=== PATIENT | female | born 1950 | race Hispanic/Latino ===

== ENCOUNTER → 2017-08-05 | Day surgery (SDC) | payer OTHER ==
--- NOTE | 2017-08-05 11:36 | RAD REPORT ---
EXAM DESCRIPTION: Ultrasound-guided vacuum assisted right breast core biopsy CLINICAL HISTORY: N63.10 COMPARISON: Recent breast imaging studies. FINDINGS: Informed consent was obtained and time-out was performed. The patient's right breast was prepped and draped in the usual sterile fashion. 1% lidocaine was used for local anesthetic purposes. Small hypoechoic lesion was localized upper inner quadrant 3 cm from the nipple. Utilizing aseptic technique and ultrasound guidance, vacuum assisted core biopsy device was used to o btain 2 core specimens through the mass of interest. A post biopsy clip was then placed. All collected material was sent for cytology. Patient tolerated procedure well. IMPRESSION: Successful ultrasound guided vacuum assisted right breast mass biopsy.
== END ==
LOC: RAD 09:40
PROVIDERS: ATTEND Internal Medicine
DX: C50.911 Malignant neoplasm of unspecified site of right female breast (principal); Z17.0 Estrogen receptor positive status [ER+]
CPT/HCPCS: 19083; 88305

== ENCOUNTER 2017-09-02 06:07 | Observation (INO) | payer OTHER ==
--- NOTE | 2017-08-28 15:14 | RAD REPORT ---
EXAM DESCRIPTION: RAD - Chest Pa And Lat (2 Views) - 08/28/2017 3:07 pm CLINICAL HISTORY: Preop chest, pending lumpectomy COMPARISON: April 29 TECHNIQUE: PA and lateral views of the chest were obtained. FINDINGS: The lungs are clear of an acute infiltrate, failure or mass. Numerous benign calcification s are present overlying both lung lopez. Pattern is similar to the comparison. Trachea is midline. Heart size is normal and central vasculature is within normal limits. No pleural effusion or pneumot horax seen. No acute bony finding noted. No aortic abnormality. IMPRESSION: No acute cardiopulmonary process. Above detailed findings are stable from April 2017 .
[2017-08-28 16:51] LABS: Absolute Monocytes 0.6 K/uL (0.1-1.3); Absolute Neutrophil 7.5 K/uL (1.8-8.0); Basophils % 0.5 % (0-1.3); Eosinophils % 2.5 % (0-4.4); Hematocrit 40.8 % (36.0-45.0); Lymphocytes % 31.8 % (15.3-44.8); MCV 84.1 fL (80-100); MPV 9.8 fL (7.6-11.3); Monocytes % 5.2 % (3.3-12.3); RBC Red Blood Cell Count 4.85 M/uL (3.86-4.86)
[2017-08-28 17:05] LABS: Potassium 4.2 mEq/L (3.6-5.0)
--- NOTE | 2017-08-28 22:40 | EKG ---
Test Date: 2017-08-28 Test Time: 14:56:56 Workers Compensation Consultant: BITA MEASUREMENT RESULTS: Intervals: Rate: 84 NM: 152 QRSD: 72 QT: 390 QTc: 460 [place]: P: 49 NM: 152 QRS: -52 T: 51 INTERPRETIVE STATEMENTS: Normal sinus rhythm Left axis deviation Abnormal ECG No previous ECG available for comparison Electronically Signed On 08-28-17 22:39:38 CDT by Silvino Love
[2017-09-02] MEDS ORDERED: NA CHLORIDE 0.9% 1,000 ML ONE (06:16)
[2017-09-02] MEDS ORDERED: CIPROFLOXACIN 400mg IV 400 MG/200 ML BAG IV ONE (08:56)
[2017-09-02] MEDS ORDERED: PROPOFOL 200 MG/20 ML VIAL IV ONE (08:57)
[2017-09-02] MEDS ORDERED: LIDOCAINE 2% MPF 5 ML VIAL ONE (08:58)
[2017-09-02] MEDS ORDERED: FENTANYL CITR 250 MCG/5 ML ONE (08:59)
[2017-09-02] MEDS ORDERED: ONDANSETRON HCL 40 MG/20 ML VIAL ONE (09:00)
[2017-09-02] MEDS ORDERED: MIDAZOLAM HCL 2 MG/2 ML INJ ONE (09:40)
[2017-09-02] MEDS ORDERED: METHYLENE BLUE 0.5% 10 ML AMP ONE (10:38)
[2017-09-02] MEDS ORDERED: MORPHINE 10 MG/ML VIAL ONE (12:16)
[2017-09-02] MEDS: NA CHLORIDE 0.9% 1,000 ML ONE ×2 (12:39→12:44)
--- NOTE | 2017-09-02 13:34 | P.BOP ---
Preoperative diagnosis: right breast cancer Postoperative diagnosis: same Primary procedure: 1. Right mastectomy Secondary procedure: 2. Right axillary sentenel lymphnode biopsy Commissary Assistant: Kim Singh (Bakari) Estimated blood loss: <100cc Specimen: r breast, sentinel LN Findings: [place] lymphnode free of cancer per Dr Cohen Pathologyst Anesthesia: General Complications: None Drain(s): ABBI drain Transferred to: Recovery Room Condition: Good
[2017-09-02] MEDS ORDERED: MEPERIDINE HCL 25 MG/0.5 ML ONE ×2 (13:36→14:22)
[2017-09-02] MEDS: MEPERIDINE HCL 50 MG/ML AMP ONE ×2 (13:48→14:04)
[2017-09-02] MEDS ORDERED: HYDROCODONE/APAP 5/325 MG TAB ONE (14:57)
[2017-09-02] MEDS ORDERED: MORPHINE 4 MG/ML SYR IV PRN (18:20)
[2017-09-02] MEDS ORDERED: D50W 25 GM/50 ML SYRINGE IV PRN (18:21)
[2017-09-02] MEDS ORDERED: GLUCAGON 1 MG/VIAL IM PRN (18:21)
[2017-09-02] MEDS ORDERED: NA CHLORIDE 0.9% 1,000 ML IV SCH (19:00)
[2017-09-02] MEDS ORDERED: INSULIN -REGULAR HUMAN 50 UNIT/0.5 ML ML SQ SCH (21:00)
[2017-09-02] MEDS ORDERED: CIPROFLOXACIN 400 MG/200 ML IVPB IV SCH (21:00)
[2017-09-02] MEDS ORDERED: PNEUMOCOCCAL VACCINE 0.5 ML IMVAC ONE (21:00)
--- NOTE | 2017-09-11 20:29 | OP ---
Date of Procedure: 09/02/2017 Surgeon: Shai Arias MD Paper Sealer: NABIL yS. Preoperative Diagnosis: Right breast cancer. Postoperative Diagnosis: Right breast cancer. Procedures: 1.Right mastectomy. 2.Right axillary sentinel lymph node biopsy. Estimated Blood Loss: Less than 100 cc. Specimen: Right breast and sentinel lymph node. Findings: [place] lymph node free of cancer per pathologist. Anesthesia: General plus local. Drains: ABBI #10 x2. Indications: This is the case of a 67-year-old patient diagnosed with invasive breast cancer on the right side. Benefits, alternatives, and risks of multiple options including breast conservation darryl tment with lumpectomy, a sentinel lymph node biopsy, possible axillary dissection. We explained to h er also right mastectomy with sentinel lymph node, possible axillary dissection, even modified right mastectomy. Discussed with the patient with benefits, alternatives, and risks. After multiple visit s to my office and multiple discussions with the family members who came to us, they decided to go fo r a right mastectomy. Just at the last moment, she wants to now proceed with that breast removal, so with the understanding of her and all the family members, we once again changed the consent, this ti me for right mastectomy, axillary sentinel lymph node dissection, possible axillary dissection, with benefits, alternatives, and risks including, but not limited to infection, bleeding, damage to adjace nt structures, anesthesia complication, chronic numbness, chronic pain, lymphedema, failure of flap, failure to identify the sentinel lymph node, [place], even . She also understands this may not relie ve any symptoms. She might need more than one surgical intervention. She signed a consent. The pat ient came this morning more than 2 hours ago and had the sentinel lymph node identification by the ra diologist. This was done, since the patient expressed her wishes to avoid axillary dissection if pos sible. The patient had injection of the radioisotope. Final lymphoscintigram was done by the radiol ogist. Description Of Procedure: The patient was brought to the operating room and placed in the supine pos ition. Anesthesia was done without complication. The right breast and axillary area were prepped an d draped in the usual sterile fashion. We proceeded to inject about 5 cc of the blue dye over the ar ea near the tumor, and the area was massaged for about 15 minutes. Once again, with the area was pre pped and draped in a sterile fashion and time-out already done, we proceeded to use the gamma probe t o identify the location of the hottest spot in the axilla. Prior to incision the number was 1359, in Vivo the count was registered at 360, ex Vivo her count was registered at 1212, and ex Vivo for 10 s econds, the count registered 1333 with background 0, and blue lymph node. An incision was made in th e axillary hairline. Once again, incision was carried down to the axillary fat pad, and the probe ma de in contact with the lymph node with the numbers dictated above sequentially obtained. The lymph n ode was identifiable, was sent to the pathologist, who claimed the lymph node was negative for any ca ncer. The area was irrigated. The area was approximated with 0 chromic. After that, we proceeded w ith the mastectomy. We included the nipple-areolar complex from previous biopsy. We made a curvilin ear incision to include the nipple-areolar complex. We elevated the flaps superiorly to the clavicle , medially to the sternum, inferiorly to the inframammary fold, laterally to the latissimus dorsi are a. Once the flaps were elevated, the breast and the fascia overlying the muscle were removed. The s pecimen was sent to the pathologist. No other masses palpated. Irrigation was done. Hemostasis obt ained. Then, after that, we proceeded to approximate the skin edges without any tension. We put 2 d rains, 1 in the axillary area, and another 1 on the pectoralis area exiting through a different inser tion point, and secured in place with 3-0 nylon. The skin was approximated with a combination of 3-0 nylon and 4-0 PDS. Sponge count and instrument counts were correct. The patient tolerated the proc edure well. The patient was sent to Recovery in stable condition with good peripheral pulses and no swelling of the arm. TAMMY/MELLY Voice ID: [id number] Report ID: [id number]
--- NOTE | 2017-09-11 20:29 | DS ---
Date of Discharge: 09/02/2017 Diagnosis: Invasive right breast cancer. Procedures: Right mastectomy with right axillary sentinel lymph node biopsy. Disposition: Home. Activity: As tolerated. No heavy lifting. The patient is undecided. She does understand the options of observation overnight and she keeps of moving back on floor and the family too, and everyone wants to know if she wants to stay in or if she is going to go home. So the next hour, when she is awake and up, we are going to try and identify h er needs and if she needs to be admitted for pain control then we will proceed with the admission. I f she feels comfortable and she wants to go home, we can proceed that way too. If she goes home, the n we at advised her about the importance of keeping the area dry and clean until seen by me in the of nevaeh this same week. Follow in my office, with the ABBI drain, recorded every 24 hours. Medications: See orders. TAMMY/MELLY Voice ID: [id number] Report ID: [id number]
== END 2017-09-02 21:24 | disposition home or self-care (01) ==
LOC: OR 06:07 → 2ND 16:00
PROVIDERS: ADMIT Surgery; ATTEND Surgery
PROC: 0HBT0ZZ Excision of Right Breast, Open Approach (ICD-10-PCS; principal; 2017-09-02 09:45)
PROC: 07B50ZX Excision of Right Axillary Lymphatic, Open Approach, Diagnostic (ICD-10-PCS; 2017-09-02 09:45)
DX: C50.911 Malignant neoplasm of unspecified site of right female breast (principal); Z17.0 Estrogen receptor positive status [ER+]; E11.9 Type 2 diabetes mellitus without complications; I10 Essential (primary) hypertension
CPT/HCPCS: 19301; 36415; 38500; 38900; 71046; 80048; 82962 ×3; 85025; 88307; 88309; 88331; 88332; 93005; G0378; G0379; J0744; J2175 ×3; J2250; J2405; J7030 ×3; 88305

== ENCOUNTER 2018-01-20 09:24 | Day surgery (SDC) | payer OTHER ==
[2018-01-16 16:38] LABS: Absolute Lymphocytes (CBC) 3.9 K/uL (0.7-4.9); Absolute Monocytes 0.5 K/uL (0.1-1.3); Absolute Neutrophil 5.5 K/uL (1.8-8.0); Basophils % 0.6 % (0-1.3); Eosinophils % 4.3 % (0-4.4); Hematocrit 38.9 % (36.0-45.0); Lymphocytes % 37.2 % (15.3-44.8); MCH 27.3 pg (27.0-35.0); MCV 83.3 fL (80-100); MPV 8.6 fL (7.6-11.3); RBC Red Blood Cell Count 4.67 M/uL (3.86-4.86)
[2018-01-16 16:54] LABS: Potassium 4.6 mmol/L (3.5-5.1)
[2018-01-20] MEDS ORDERED: NA CHLORIDE 0.9% 1,000 ML ONE (09:54)
[2018-01-20] MEDS ORDERED: NS 0.9% VIAL 20 ML ONE (09:59)
[2018-01-20] MEDS ORDERED: LIDOCAINE 1% MPF 30 ML VIAL ONE (09:59)
[2018-01-20] MEDS: HEPARIN 5000 UNIT/ML 1 ML VIAL ONE ×2 (10:00→11:20)
[2018-01-20] MEDS ORDERED: INSULIN -REGULAR HUMAN 50 UNIT/0.5 ML ML ONE (10:19)
[2018-01-20] MEDS ORDERED: PROPOFOL 200 MG/20 ML VIAL IV ONE (10:26)
[2018-01-20] MEDS ORDERED: LIDOCAINE 1% MPF 5 ML VIAL ONE (10:27)
[2018-01-20] MEDS ORDERED: FENTANYL CITR 100 MCG/2 ML ONE (10:27)
[2018-01-20] MEDS ORDERED: CEFAZOLIN/SWI 1gm 1 GM/10 ML SYR ONE (10:27)
[2018-01-20] MEDS ORDERED: MIDAZOLAM HCL 2 MG/2 ML INJ ONE (10:27)
[2018-01-20] MEDS ORDERED: KETOROLAC 30 MG/ML INJ ONE (11:25)
[2018-01-20] MEDS ORDERED: ONDANSETRON HCL 40 MG/20 ML VIAL ONE (11:25)
[2018-01-20] MEDS: MEPERIDINE HCL 25 MG/0.5 ML ONE ×2 (11:26→12:21)
--- NOTE | 2018-01-20 11:30 | P.BOP ---
Preoperative diagnosis: breast cancer Postoperative diagnosis: SAME Primary procedure: 1. Placement of portacath left subcalvian vein Secondary procedure: 2. Interpretation of fluoroscopy Estimated blood loss: <10cc Specimen: none Findings: as above Anesthesia: General Complications: None Implants: single lumen portacath Transferred to: Recovery Room
[2018-01-20] MEDS: MORPHINE 4 MG/ML SYR ONE ×2 (12:06→12:14)
--- NOTE | 2018-01-20 12:46 | RAD REPORT ---
EXAM DESCRIPTION: RAD - Chest Single View - 01/20/2018 12:40 pm CLINICAL HISTORY: s/p port a cath to L chest Chest pain. COMPARISON: Chest Pa And Lat (2 Views) dated 08/28/2017; Chest Pa And Lat (2 Views) dated 04/29/2017; CH EST SINGLE VIEW dated 05/20/2008; CHEST PA AND LAT 2 VIEW dated 08/07/2004 FINDINGS: Portable technique limits examination quality. Left-sided venous catheter is in place with its tip in the SVC. No pneumothorax is present. Calcified granulomata are present in the lungs. The heart is normal in size. No displaced fractures.Aortic ath erosclerosis. IMPRESSION: No postprocedure pneumothorax is seen.
--- NOTE | 2018-01-20 12:54 | RAD REPORT ---
EXAM DESCRIPTION: RAD - Fluoroscopy <1 Hour - 01/20/2018 12:42 pm FINDINGS: Multiple portable C-arm views were obtained during fluoroscopic assisted placement of a le ft subclavian Port-A-Cath. There were 17 fluoroscopic images obtained. Fluoro time was 0.4 minutes. Images show no suspicious or unexpected finding.
--- NOTE | 2018-01-20 22:13 | OP ---
Date of Procedure: 01/20/2018 Surgeon: Shai Arias MD Monotypist: None. Preoperative Diagnosis: Breast cancer. Postoperative Diagnosis: Breast cancer. Procedures: 1.Placement of a Port-A-Cath on the left subclavian vein. 2.Interpretation of fluoroscopy. Estimated Blood Loss: Less than 10 cc. Anesthesia: General plus local. Indications: This is the case of a 67-year-old patient who comes to us in need of chemotherapy so Po rt-A-Cath was requested by the oncologist and primary doctor. Benefits, alternatives, and risks of p lacement of a Port-A-Cath fully explained to the patient, which include but are not limited to infect ion, bleeding, damage to adjacent structures, anesthesia complication, hemothorax, pneumothorax, DVTs , breakage of the catheter, pericarditis, pericardiac tamponade, PE, CT, and even . She also un derstands this may not relieve any symptoms. She might need more than one surgical intervention. Sh e was explained the importance of the maintenance of this Port-A-Cath monthly. If this is not being used, to be flushed. This can be arranged through the primary doctor for a home health visit patient monthly. At the same time when the Port-A-Cath is not in use anymore by oncologist, we encouraged h er to come to the office to remove it immediately. She signed a consent. Description Of Procedure: The patient was brought to the operating room, placed in supine position. Anesthesia was done without complication. Left chest and neck were prepped and draped in a sterile fashion. Local anesthesia was applied. was obtained. A time-out was called before that. After that, an 18-gauge needle was placed in the left subclavian vein at the first attempt. A guid ewire was passed through, and the guidewire was guided into the superior vena cava using fluoroscopy guidance. The needle was removed. A small pocket was created in the left upper chest. An introduce r was placed through the guidewire. Guidewire was removed. Catheter was placed in and introducer wa s peeled off. The catheter was tunneled underneath the skin to meet the new incision in the left upp er chest, cut to proper size, and then connected to the Port-A-Cath using the nursing home physician's specific ations. Fluoroscopy was used once again to see proper placement, excellent backflow and inflow. The Port-A-Cath was sutured to the subcutaneous tissue and then the skin was closed with a subcutaneous 3-0 chromic and Steri-Strip on top. Sponge count and instrument counts were correct. The patient to lerated the procedure well. The patient was sent to recovery room in stable condition, and a chest x -ray was ordered stat. TAMMY/MELLY Voice ID: [id number] Report ID: [id number]
--- NOTE | 2018-01-20 22:16 | DS ---
Date of Discharge: 01/20/2018 Diagnosis: Breast cancer. Procedures: Placement of a Port-A-Cath and interpretation of fluoroscopy. Disposition: Home. Activity: As tolerated. No heavy lifting. Followup: Follow up in my office in 1 week. Call for appointment on [phone]. Keep the area dry fo r 48 hours, then may shower. Keep Steri-Strips intact. The patient will be discharged after the x-r ay is reviewed by the radiologist. Medications: Tylenol No.3 q.4 hours p.r.n. pain. TAMMY/MELLY Voice ID: [id number] Report ID: [id number]
== END 2018-01-20 13:20 | disposition home or self-care (01) ==
LOC: OR 09:24
PROVIDERS: ATTEND Surgery
PROC: 0JH60WZ Insertion of Totally Implantable Vascular Access Device into Chest Subcutaneous Tissue and Fascia, Open Approach (ICD-10-PCS; principal; 2018-01-20 11:45)
DX: C50.911 Malignant neoplasm of unspecified site of right female breast (principal); E11.9 Type 2 diabetes mellitus without complications; I10 Essential (primary) hypertension; Z90.11 Acquired absence of right breast and nipple; Z83.3 Family history of diabetes mellitus
CPT/HCPCS: 36415; 36561; 71045; 80048; 82962 ×3; 85025; C1788; J0690; J1644; J2175; J2250; J2405; J3010; J7030; 76000; J2704

== ENCOUNTER 2018-03-05 07:33 | Day surgery (SDC) | payer OTHER ==
[2018-03-05 07:57] LABS: Absolute Lymphocytes (CBC) 3.5 K/uL (0.7-4.9); Absolute Monocytes 0.4 K/uL (0.1-1.3); Absolute Neutrophil 5.3 K/uL (1.8-8.0); Basophils % 0.7 % (0-1.3); Eosinophils % 2.7 % (0-4.4); Hematocrit 35.8 % (36.0-45.0); Lymphocytes % 36.4 % (15.3-44.8); MCH 28.3 pg (27.0-35.0); MCV 84.9 fL (80-100); MPV 8.5 fL (7.6-11.3); Monocytes % 4.7 % (3.3-12.3); RBC Red Blood Cell Count 4.21 M/uL (3.86-4.86)
[2018-03-05] MEDS: NA CHLORIDE 0.9% 1,000 ML ONE ×2 (08:20→11:00)
[2018-03-05 08:24] LABS: BUN Blood Urea Nitrogen 18 mg/dL (7-18); Bicarbonate 29 mmol/L (21-32); Glucose Level 206 mg/dL (74-106); Potassium 3.9 mmol/L (3.5-5.1); Sodium Level 142 mmol/L (136-145)
--- NOTE | 2018-03-05 08:54 | RAD REPORT ---
EXAM DESCRIPTION: Claire Ruiz And Anay (2 Views)03/05/2018 8:06 am CLINICAL HISTORY: Preoperative exam COMPARISON: December 2017 FINDINGS: The lungs appear clear of acute infiltrate. The heart is normal size. A central venous ca theter has its tip in the proximal superior vena cava IMPRESSION: No acute abnormalities displayed
[2018-03-05] MEDS ORDERED: HEPARIN 5000 UNIT/ML 1 ML VIAL ONE (10:16)
[2018-03-05] MEDS ORDERED: LIDOCAINE 2% INJ, 20 mL 0 ML ONE (10:16)
[2018-03-05] MEDS ORDERED: NS 0.9% VIAL 20 ML ONE (10:16)
[2018-03-05] MEDS ORDERED: MIDAZOLAM HCL 2 MG/2 ML INJ ONE (11:01)
[2018-03-05] MEDS ORDERED: FENTANYL CITR 100 MCG/2 ML ONE (11:01)
[2018-03-05] MEDS ORDERED: PROPOFOL 200 MG/20 ML VIAL IV ONE (11:01)
[2018-03-05] MEDS ORDERED: LIDOCAINE 2% MPF 5 ML VIAL ONE (11:02)
[2018-03-05] MEDS ORDERED: LIDOCAINE 1% MPF 30 ML VIAL ONE (11:13)
[2018-03-05] MEDS ORDERED: CEFAZOLIN 1GM (PREMIX IV) 1 GM/50 ML BAG ONE (11:25)
--- NOTE | 2018-03-05 11:40 | EKG ---
Test Date: 2018-03-05 Test Time: 07:48:37 Inspector Eyeglass Frames: COURTNEY MEASUREMENT RESULTS: Intervals: Rate: 79 [place]: 158 QRSD: 74 QT: 392 QTc: 449 [place]: P: 54 [place]: 158 QRS: -36 T: 44 INTERPRETIVE STATEMENTS: Normal sinus rhythm Left axis deviation Abnormal ECG Compared to ECG 08/28/2017 14:56:56 No significant changes Electronically Signed On 03-05-18 11:39:29 SERVOMECHANISM ASSEMBLER by Silvino Love
--- NOTE | 2018-03-05 11:42 | P.BOP ---
Preoperative diagnosis: breast cancer on chemotherapy Postoperative diagnosis: same Primary procedure: 1. Placement of new portacath Secondary procedure: 2. Removal of old non functional portacath Other procedure(s): 3. Interpretation of fluoroscopy Estimated blood loss: <10cc Specimen: intact portacath with distal catheter , Findings: as above Anesthesia: General Complications: None Implants: new single lumen portacath Transferred to: Recovery Room Condition: Good
[2018-03-05] MEDS ORDERED: KETOROLAC 30 MG/ML INJ ONE (11:44)
--- NOTE | 2018-03-05 11:50 | RAD REPORT ---
EXAM DESCRIPTION: RAD - Fluoroscopy <1 Hour - 03/05/2018 11:43 am CLINICAL HISTORY: Venous catheter insertion. PORT A CATH PLACEMENT COMPARISON: Fluoroscopy <1 Hour dated 01/20/2018 FINDINGS: Fluoroscopic imaging is submitted from placement of a venous catheter. Details of the pro cedure not available. Fluoroscopy time: 0.3 minutes.
[2018-03-05] MEDS: MORPHINE 4 MG/ML SYR ONE ×4 (11:56→12:14)
[2018-03-05] MEDS: MEPERIDINE HCL 25 MG/0.5 ML ONE ×2 (12:22→12:27)
--- NOTE | 2018-03-05 12:22 | RAD REPORT ---
EXAM DESCRIPTION: RAD - Chest Single View - 03/05/2018 12:05 pm CLINICAL HISTORY: S/P PORT A CATH Chest pain. COMPARISON: Chest Pa And Lat (2 Views) dated 03/05/2018; Chest Single View dated 01/20/2018; Chest P a And Lat (2 Views) dated 08/28/2017; Chest Pa And Lat (2 Views) dated 04/29/2017 FINDINGS: Portable technique limits examination quality. Left-sided port catheter its tip in the SVC. No pneumothorax is present. The lungs are grossly clear. The heart is normal in size. No displaced fractures.Aortic atherosclerosis. IMPRESSION: No postprocedure pneumothorax.
--- NOTE | 2018-03-19 12:05 | OP ---
Date of Procedure: 03/05/2018 Surgeon: Shai Arias MD Preoperative Diagnosis: Breast cancer on chemotherapy. Postoperative Diagnosis: Breast cancer on chemotherapy. Procedures: 1. Placement of a new Port-A-Cath. 2. Removal of an old nonfunctional Port-A-Cath. 3. Interpretation of fluoroscopy. Specimen: Intact Port-A-Cath with distal catheter. Anesthesia: General plus local. Implant: New single-lumen Port-A-Cath in the subclavian vein. THIS DICTATION ITS DUPLICATED. SEE OTHER DICTATION HM/MODL Voice ID: [id number] Report ID: [id number] MTDD
--- NOTE | 2018-03-19 14:33 | OP ---
Date of Procedure: 03/05/2018 Surgeon: Shai Arias MD Preoperative Diagnosis: Breast cancer, on chemotherapy. Postoperative Diagnosis: Breast cancer, on chemotherapy. Procedures: 1.Placement of a new Port-A-Cath. 2.Removal of an old nonfunctional Port-A-Cath. 3.Interpretation of fluoroscopy. Specimen: Intact Port-A-Cath with distal catheter. Anesthesia: General plus local. Implant: New single-lumen Port-A-Cath. Indications: This is a case of a female who comes to us, was given chemotherapy due to breast cancer . The patient has an imaging study of the left Port-A-Cath recently done in [place] and discovered that is not functioning properly, so I was asked to remove the old Port-A-Cath and place a new Port-A -Cath. The patient preferred to be done in the same location if possible. I explained to her someti mes it is difficult to do it at the same location, so we might have to go on the right side if this i s the case. The benefits, alternatives, and risks of placement of Port-A-Cath and fluoroscopy were f ully explained to the patient, which include but are not limited to infection, bleeding, damage to ad jacent structures, anesthesia complication, pneumothorax, pericarditis, pericardiac tamponade, and DV T from breakage of the catheter, pneumothorax, [place], even . She also understands this may not rel ieve any symptoms. She might need more than one surgical intervention. She was explained the import ance also to arrange with the primary doctor or her [facility] for a monthly flush of this cathete r if she decides to keep it after the chemotherapy, although we advised it to be removed as soon as t he chemotherapy is finished since it is not designed to be there for a long period of time other than that is necessary. She understood and signed a consent. Description Of Procedure: The patient was brought to the operating room, placed in supine position. Anesthesia was done without complication. The left and right chest were prepped and draped in usual sterile fashion. Local anesthesia was applied over the area. The patient placed in Trendelenburg p osition. Incision was made over the left upper chest. Incision was done in the clavicular region. Catheter was seen, obtained control. Placed a hemostat distal and proximal, cut in the middle. Anot her incision was made in the left upper chest. The Port-A-Cath was removed, seen to be intact. We p roceeded to put a guidewire to the proximal catheter, holding the catheter in place. It looked like it is going in the superior vena cava under fluoroscopy without resistance, so catheter was removed a t proximal and distal. At that moment then I proceeded to a put an introducer kit through the guidew jenny under fluoroscopy into the superior vena cava. I put a new catheter through it, peeled the intro ducer off with a guidewire, tunneled a new catheter underneath the skin to meet a new pocket placed i n the left upper chest. This connected to the Port-A-Cath after proper sizing and cutting using the manufacture's specification and sutured in place to the subcutaneous tissue. Excellent backflow and inflow. The Port-A-Cath was flushed with heparin solution. Once again, Port-A-Cath was used to see proper placement and looks intact with no kink. At that moment, I proceeded then to close the subcut aneous tissue with 3-0 chromic and a Steri-Strip on top. Sponge count and instrument counts were cor rect. The patient tolerated the procedure well. The patient was sent to Recovery in stable conditio n. TAMMY/MELLY Voice ID: [id number] Report ID: [id number]
--- NOTE | 2018-03-19 14:36 | DS ---
Date of Discharge: 03/05/2018 Diagnoses: Breast cancer, on chemotherapy. Procedures: Placement of a new Port-A-Cath, removal of an old nonfunctional Port-A-Cath, and interpr etation of fluoroscopy. Disposition: Home. Activity: As tolerated. No heavy lifting. Discharge Instructions: Follow up in my office in 1 week. Call for appointment [phone]. Keep area dry for 48 hours, then may shower. Keep Steri-Strips intact. TAMMY/MELLY Voice ID: [id number] Report ID: [id number]
== END 2018-03-05 13:35 | disposition home or self-care (01) ==
LOC: OR 07:33
PROVIDERS: ATTEND Surgery
PROC: B518YZA Fluoroscopy of Superior Vena Cava using Other Contrast, Guidance (ICD-10-PCS; 2018-03-05)
PROC: 0XP Anatomical Regions, Upper Extremities, Removal (ICD-10-PCS; 2018-03-05)
PROC: 02HV33Z Insertion of Infusion Device into Superior Vena Cava, Percutaneous Approach (ICD-10-PCS; principal; 2018-03-05 09:30)
DX: T82.594A Other mechanical complication of infusion catheter, initial encounter (principal); Y74.3 Surgical instruments, materials and general hospital and personal-use devices (including sutures) associated with adverse incidents; Y92.019 Unspecified place in single-family (private) house as the place of occurrence of the external cause; C50.919 Malignant neoplasm of unspecified site of unspecified female breast; I10 Essential (primary) hypertension; E11.9 Type 2 diabetes mellitus without complications; Z79.84 Long term (current) use of oral hypoglycemic drugs; Z79.4 Long term (current) use of insulin
CPT/HCPCS: 36415; 36558; 36589; 71045; 71046; 77001; 80048; 82962 ×2; 85025; 88300; 93005; C1788; J0690; J1644 ×2; J2175; J2250; J2704; J3010; J7030; 76000

== ENCOUNTER 2018-06-18 06:27 | Day surgery (SDC) | payer OTHER ==
[2018-06-17 17:12] LABS: Absolute Lymphocytes (CBC) 3.4 K/uL (0.7-4.9); Absolute Monocytes 0.5 K/uL (0.1-1.3); Absolute Neutrophil 5.9 K/uL (1.8-8.0); Basophils % 0.5 % (0-1.3); Eosinophils % 6.5 % (0-4.4); Hematocrit 34.3 % (36.0-45.0); Lymphocytes % 32.2 % (15.3-44.8); MPV 8.8 fL (7.6-11.3); Monocytes % 5.1 % (3.3-12.3); RBC Red Blood Cell Count 4.22 M/uL (3.86-4.86)
[2018-06-17 17:28] LABS: Potassium 4.1 mmol/L (3.5-5.1)
[2018-06-18] MEDS ORDERED: BUPIVACAINE 0.5% PF 10 ML VIAL ONE ×2 (07:14→09:09)
[2018-06-18] MEDS ORDERED: LIDOCAINE 1% MPF 30 ML VIAL ONE (07:14)
[2018-06-18] MEDS ORDERED: NA CHLORIDE 0.9% 1,000 ML ONE (07:26)
[2018-06-18] MEDS ORDERED: CEFAZOLIN/SWI 1gm 1 GM/10 ML SYR ONE (07:26)
[2018-06-18] MEDS ORDERED: FENTANYL CITR 100 MCG/2 ML ONE (07:54)
[2018-06-18] MEDS ORDERED: LIDOCAINE 1% MPF 5 ML VIAL ONE (07:54)
[2018-06-18] MEDS ORDERED: PROPOFOL 200 MG/20 ML VIAL IV ONE (07:54)
[2018-06-18] MEDS ORDERED: MIDAZOLAM HCL 2 MG/2 ML INJ ONE (07:54)
--- NOTE | 2018-06-18 08:21 | P.BOP ---
Preoperative diagnosis: breast cancer Postoperative diagnosis: same Primary procedure: Removal of portacath Estimated blood loss: <5cc Specimen: portacath intact Findings: as above Anesthesia: General Complications: None Transferred to: Recovery Room Condition: Good
[2018-06-18] MEDS ORDERED: CODEINE 30MG/APAP 300MG TAB ONE (09:02)
--- NOTE | 2018-06-20 18:17 | OP ---
Date of Procedure: 06/18/2018 Surgeon: Shai Arias MD Preoperative Diagnosis: Breast cancer. Postoperative Diagnosis: Breast cancer. Procedures: Removal of Port-A-Cath. Anesthesia: General plus local. Indications: This is the case of a female who comes to us with history of breast cancer, in no need for a Port-A-Cath anymore, so she wants that removed. The benefits, alternatives, and risks of remov al were fully explained, which include but are not limited to infection, bleeding, damage to adjacent structures, anesthesia complication, pulmonary emboli, [place], and even . She also understands thi s may not relieve any symptoms. She might need more than one surgical intervention. She understood, signed a consent. The area of concern was marked by me and the patient in the holding room. Description Of Procedure: The patient was brought to the operating room, placed in supine position. Anesthesia was done without complication. Local anesthetic was applied over the area. Incision was made. The Port-A-Cath was localized, removed from the subcutaneous tissue, and then pulled carefull y intact. Pressure was applied for 15 minutes in the insertion point. Subcutaneous incision was quincy sed with 3-0 chromic and skin in subcuticular fashion with 3-0 chromic after irrigation. The patient tolerated the procedure well. No bleeding. The patient was sent to recovery in stable condition. Disposition: Home. Activity: As tolerated. No heavy lifting. Followup: Follow up in my office in 1 week. Call for appointment [phone]. Keep the area dry for 4 8 hours, then may shower. Keep Steri-Strips intact. Medications: See orders. HM/MODL Voice ID: [id number] Report ID: [id number]
== END 2018-06-18 09:25 | disposition home or self-care (01) ==
LOC: OR 06:27
PROVIDERS: ATTEND Surgery
PROC: 0JPT3XZ Removal of Tunneled Vascular Access Device from Trunk Subcutaneous Tissue and Fascia, Percutaneous Approach (ICD-10-PCS; principal; 2018-06-18 08:15)
DX: Z45.2 Encounter for adjustment and management of vascular access device (principal); E11.9 Type 2 diabetes mellitus without complications; I10 Essential (primary) hypertension; Z79.4 Long term (current) use of insulin; Z79.899 Other long term (current) drug therapy; Z85.3 Personal history of malignant neoplasm of breast
CPT/HCPCS: 36590; 85025; 80048; 36415; 82962; 88300; J2704; J2250; J3010; J0690; J7030

== ENCOUNTER 2019-10-29 10:12 | Emergency (ER) | payer OTHER ==
--- NOTE | 2019-10-29 10:30 | ER ---
Nurse's Notes [facility] Name: Anna Colvin Age: 69 yrs Sex: Female : 1950 Arrival Date: 10/29/2019 Time: 10:15 Bed 5 Private MD: Diagnosis: Person with feared health complaint in whom no diagnosis is made Presentation: 10/28 10:35 Chief complaint: Patient states: Cultural link translation line used, ID# [id number]. "I ss went to the clinic to check my diabetes and I wasn't feeling well because I was waiting a long time and I didn't eat. I told them this was normal since I did not eat, but they told me I had to go to the hospital because we had a visitor at the house that tested positive for covid". Pt has no complaints at this time. Coronavirus screen: Client denies travel out of the [place] in the last 14 days. At this time, the client does not indicate any symptoms associated with coronavirus-19. Ebola Screen: Patient denies exposure to infectious person. Patient denies travel to an Ebola-affected area in the 21 days before illness onset. Initial Sepsis Screen: Does the patient meet any 2 criteria? No. Patient's initial sepsis screen is negative. Does the patient have a suspected source of infection? No. Patient's initial sepsis screen is negative. Risk Assessment: Do you want to hurt yourself or someone else? Patient reports no desire to harm self or others. Onset of symptoms is unknown. 10:35 Method Of Arrival: Ambulatory ss 10:35 Acuity: JESSICA 5 ss Historical: - Allergies: 10:40 No Known Allergies; ss - PMHx: 10:40 Diabetes - IDDM; Hyperlipidemia; ss - Immunization history:: Adult Immunizations up to date. - Social history:: Smoking status: Patient denies any tobacco usage or history of. Screenin:17 Abuse screen: Denies threats or abuse. Denies injuries from another. Nutritional sv screening: No deficits noted. Tuberculosis screening: No symptoms or risk factors identified. Fall Risk None identified. Assessment: 10:16 General: Appears in no apparent distress. comfortable, Behavior is calm, cooperative, ss Denies fever, feeling ill, fatigue, chills. Pain: Denies pain. Neuro: Level of Consciousness is awake, alert, obeys commands, Oriented to person, place, time, situation. Cardiovascular: Capillary refill < 3 seconds is brisk in bilateral fingers. Respiratory: Airway is patent Respiratory effort is even, unlabored, Respiratory pattern is regular, symmetrical. Derm: Skin is pink, warm \\T\\ dry. normal. Musculoskeletal: Circulation, motion, and sensation intact. Range of motion: intact in all extremities, Swelling absent. Vital Signs: 10:35 BP 157 / 88; Pulse 90; Resp 16; Temp 99.0(O); Pulse Ox 99% on R/A; Pain 0/10; ss ED Course: 10:15 Patient arrived in ED. ds1 10:17 Arm band placed on Patient placed in an exam room, on a stretcher. sv 10:17 Patient has correct armband on for positive identification. Bed in low position. Call sv light in reach. Pulse ox on. NIBP on. 10:19 Nilson Brantley PA is PHCP. alfonso 10:19 Tristan Rosenberg MD is Attending Physician. [facility] 10:34 Jeniffer Garcia, ED is Primary Nurse. ss 10:37 Triage completed. ss 10:40 No provider procedures requiring assistance completed. Patient did not have IV access ss during this emergency room visit. Administered Medications: No medications were administered Outcome: 10:30 Discharge ordered by . [facility] 10:35 Medical screen evaluation completed per provider. Patient declined treatment. ss 10:35 Condition: good 10:35 Instructed on follow up and referral plans. 10:37 Patient left the ED. ss Signatures: Belkys Rosas RN RN Nilson Brantley PA PA jmm Sanford, Demi ds1 Jeniffer Garcia RN RN
--- NOTE | 2019-10-29 10:31 | EDPHYS ---
Physician Documentation [facility] Name: Anna Colvin Age: 69 yrs Sex: Female : 1950 Arrival Date: 10/29/2019 Time: 10:15 Bed 5 Private MD: ED Physician Tristan Rosenberg HPI: 10/28 10:35 This 69 yrs old Female presents to ER via Ambulatory with complaints of Covid jmm Exposure. 10:35 This is a 69 year old female with a history of DM, HLP that presents to the ED with no jmm complaints. Patient states she was exposed to a member of her home which recently tested positive for COVID. Patient states she was advised by her clinic to go to the hospital for testing. Patient denies chest pain, shortness of breath, fever, vomiting, diarrhea. . Historical: - Allergies: 10:40 No Known Allergies; ss - PMHx: 10:40 Diabetes - IDDM; Hyperlipidemia; ss - Immunization history:: Adult Immunizations up to date. - Social history:: Smoking status: Patient denies any tobacco usage or history of. ROS: 10:35 Constitutional: Negative for fever, chills, and weight loss, Cardiovascular: Negative jmm for chest pain, palpitations, and edema, Respiratory: Negative for shortness of breath, cough, wheezing, and pleuritic chest pain, Abdomen/GI: Negative for abdominal pain, nausea, vomiting, diarrhea, and constipation. 10:35 All other systems are negative. Exam: 10:35 Constitutional: This is a well developed, well nourished patient who is awake, alert, jmm and in no acute distress. Head/Face: atraumatic. Eyes: EOMI, no conjunctival erythema appreciated ENT: Moist Mucus Membranes Neck: Trachea midline, Supple Chest/axilla: Normal chest wall appearance and motion. Cardiovascular: Regular rate and rhythm. No edema appreciated Respiratory: Normal respirations, no respiratory distress appreciated Abdomen/GI: Non distended, soft Back: Normal ROM Skin: General appearance color normal MS/ Extremity: Moves all extremities, no obvious deformities appreciated, no edema noted to the lower extremities Neuro: Awake and alert, normal gait Psych: Behavior is normal, Mood is normal, Patient is cooperative and pleasant Vital Signs: 10:35 BP 157 / 88; Pulse 90; Resp 16; Temp 99.0(O); Pulse Ox 99% on R/A; Pain 0/10; ss MDM: 10:30 Patient medically screened. [facility] 11:30 Data reviewed: vital signs, nurses notes. ED course: Patient is alert and non toxic in [facility] appearance in the ED. No complaints. No signs of resp distress. patient is advised to follow up outpatient for further covid patient. Patient is otherwise given strict return precautions for any other concerns. Patient understood. Photographic Processor was used. . Administered Medications: No medications were administered Disposition: 10:29 Well Exam. [facility] 10/29 08:00 Co-signature as Attending Physician, Tristan Rosenberg MD I agree with the assessment and kdr plan of care. Disposition: 10/29/19 10:30 Discharged to Home as Medical Screen. Impression: Person with feared health complaint in whom no diagnosis is made. - Condition is Stable. - Discharge Instructions: COVID-19. - Medication Reconciliation Form, Thank You Letter, Antibiotic Education, Prescription Opioid Use form. - Follow up: Private Physician; When: As needed; Reason: Recheck today's complaints, Continuance of care, Re-evaluation by your physician. - Notes: Please follow up with outpatient testing center for further evaluation. Please return to the ED if you develop any shortness of breath, vomiting, chest pain, or any other concerning symptoms. Signatures: Tristan Rosenberg MD MD kdr Mickail, Joel, PA PA [facility] Jeniffer Garcia RN RN ss Corrections: (The following items were deleted from the chart) 10/28 10:37 10:30 10/29/2019 10:30 Discharged to Home as Medical Screen. Impression: Person with ss feared health complaint in whom no diagnosis is made. Condition is Stable. Forms are Medication Reconciliation Form, Thank You Letter, Antibiotic Education, Prescription Opioid Use. Follow up: Private Physician; When: As needed; Reason: Recheck today's complaints, Continuance of care, Re-evaluation by your physician. [facility]
[2019-10-29 10:42] VITALS: BP 157/88; TEMP 99; O2SAT 99
--- OUTSIDE RECORDS SUMMARY | 2019-10-29 12:43 | XMS REPORT | Continuity of Care Document ---
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/16/[address] neoplasm of nipple and areola, right female breast Estrogen receptor 09/16/2018 Ap Boucher positive status [ER+] ENCOUNTER FOR Active Janina theast ANTINEOPLASTIC CHEMOTHERAP Medications No Data Provided for This Section Allergies, Adverse Reactions, Alerts Substance Category Reaction Severity Reaction Status Date Comments S ource type Reported No Known Assertion Drug OP ID Medication allergy Angela and Allergies Immunizations No Data Provided for This Section Results Order Results Value Reference Date Interpretation Comments Source Name Range CHEM POC 0.7 0.5 - 1.4 03/11/ PANEL Creatinine 2019 [facility] CHEM eGFR 91 03/11/ Result PANEL 2019 Comment: The [facility] eGFR is calculated using the CKD-EPI formula. In most young, healthy individuals the eGFR will be >90 mL/min/1.73m2. The eGFR declines with age. An eGFR of 60-89 may be normal in some populations, particularly the elderly, for whom the CKD-EPI formula has not been extensively validated. Use of the eGFR is not recommended in the following populations:<b r/>
Indivi duals with unstable creatinine concentrations , including patients and those with serious co-morbid conditions.

Patient s with extremes in muscle mass or diet.

The data above are obtained from the National Kidney Disease Education Program (NKDEP) which additionally recommends that when the eGFR is used in patients with extremes of body mass index for purposes of drug dosing, the eGFR should be multiplied by the estimated BMI. CHEM Creatinine 0.66 0.50 - 1.40 [place] [address] PANEL Lvl 2018 CHEM eGFR 93 [facility] PANEL 2018 Comment: The eGFR is calculated using the CKD-EPI formula. In most young, healthy individuals the eGFR will be >90 mL/min/1.73m2. The eGFR declines with age. An eGFR of 60-89 may be normal in some populations, particularly the elderly, for whom the CKD-EPI formula has not been extensively validated. Use of the eGFR is not recommended in the following populations:<b r/>
Indivi duals with unstable creatinine concentrations , including patients and those with serious co-morbid conditions.

Patient s with extremes in muscle mass or diet.

The data above are obtained from the National Kidney Disease Education Program (NKDEP) which additionally recommends that when the eGFR is used in patients with extremes of body mass index for purposes of drug dosing, the eGFR should be multiplied by the estimated BMI. Pathology Reports No Data Provided for This Section Diagnostic Reports Report Value Date Source Wrist complete DX PROCEDURE INFORMATION: 04/16/2019 MELLO Boucher Exam: XR Left Wrist Exam date and time: 04/16/2019 12:41 PM Age: 68 years old Clinical indication: Pain in left wrist; Additional info: /m25.532 pain in left wrist TECHNIQUE: Imaging protocol: XR Left wrist. Views: 3 or more views. Frontal Oblique Lateral COMPARISON: No relevant prior studies available. FINDINGS: Bones/joints: Moderate arthritic changes 1st car pometacarpal joint. Joint spaces otherwise maintained. Bones intact. Soft tissues: There are no radio-opaque foreign bodies. IMPRESSION: Moderate arthritic changes 1st carpometacarpal j oint. Otherwise normal exam. Henrique Arora MD On 04/16/2019 13:09:11; EFREN-JODIE [id number] Chest w contrast CT Radiation Dose CTDIVOL = 0 (mGy): DLP = 212 (mGy-cm) 03/11/2019 MELLO Blake PROCEDURE INFORMATION: Exam: CT Chest With Contrast Exam date and time: 03/11/2019 11:39 AM Age: 68 years old Clinical indication: Malignant neoplasm of nippl e and areola, right female breast; Cough; Additional info: /c50.011 maligna nt neoplasm of nipple and areola, right female breast, r05 cough TECHNIQUE: Imaging protocol: Computed tomography of the ke[address] st with intravenous contrast. Total DLP: 212 mGy-cm Radiation optimization: All CT scans at this facility use at least one of these dose optimization techniques: automated exposure control; mA and/or kV adjustment per patient size (includes targeted e xams where dose is matched to clinical indication); or iterative reconstructio n. Contrast material: OMNI; Contrast volume: 100 ml ; Contrast route: IV; COMPARISON: CHEST W CONTRAST CT 11/06/2018 9:09 AM FINDINGS: Lungs: Lungs are hyperinflated. There are bronch iectatic changes within both lungs with calcified densities filling numerous bilateral bronchi, as before, compatible with chronic mucous impaction. Additi onally noted is a centrally calcified 8 mm nodule in the left temple meat cutter ior lung base which is most compatible with an incidental granuloma . There is no new suspicious pulmonary nodule, mass or infiltrate otherwise. Pleural space: Unremarkable. No pneumothorax. No pleural effusion. Heart: Coronary calcifications. No cardiomegaly. No pericardial effusion. Aorta: Unremarkable. No aortic aneurysm. Lymph nodes: Unremarkable. No enlarged lymph nod es. Bones/joints: Unremarkable. No acute fracture. Soft tissues: Right mastectomy changes. No soft tissue mass or axillary adenopathy. IMPRESSION: Hyperinflated lungs suggesting underlying obstru ctive lung disease. Bilateral bronchiectasis containing numerous foc i of calcified chronic mucoid impaction similar to previous. No new pulmonary nodule mass or infiltrate or new metastatic disease within the chest. Gennaro Whitman MD On 03/11/2019 18:34:54; VR -[id number] Chest w contrast CT Exam: Chest w contrast CT 11/06/2018 MELLO Boucher Clinical Indication: - enlarged lymph nodes; hi story of breast cancer. Comparison: None TECHNIQUE: Sequential trans- axial images were obtained thru the chest and upper abdomen after administration of iodinated contrast. Coronal and sagittal reconstructions were obtained. 100 mL of intraven ous Omnipaque 300 contrast material was used for the exam. CT imaging performed at this location utilizes radiation dose optimization techniques which include one or more of the following: -Automated exposure control -Adjustment of the mA and/or kV according to pat ient size -Use of iterative reconstruction technique Dose: DLP = 244.20 mGy-cm FINDINGS: LUNG PARENCHYMA AND PLEURA: Numerous scattered calcified granulomas present throughout bilateral lungs with more localized area of scarring and calcification in the right lower lobe and smaller focal ar eas of calcification in the left upper lobe and left lower lobe. No suspicious noncalcified pulmonary nodule or mass identified. No focal consolidation. No pleural effusion or pneumothorax. AIRWAY: The central airway is patent. LYMPH NODES: No significant mediastinal or hilar lymphadenopathy. No significant supraclavicular or axillary lymphadenopathy. CARDIOVASCULAR STRUCTURES: H eart size is within normal limits. Coronary artery atherosclerotic calcifications noted. No significant pericardial effusion. The pulmonary arteries are unremarkable. Scatter ed atherosclerotic calcifica tions along the thoracic aorta without aneurysmal dilatation. The left innominate vein is not clearly seen and does not opacify with contrast (note the patient was injected v ia left upper extremity vein ) is suggestive of chronic stenosis/occlusion. There is flow of contrast in collateral vessels of the mediastinum. OSSEOUS STRUCTURES: No acute osseous abnormality or suspicious osseous lesion identified. SOFT TISSUES: Status post ri ght mastectomy. Soft tissues are otherwise unremarkable. VISUALIZED UPPER ABDOMEN: A cyst is present in the left kidney measuring 1.3 cm. Visualized upper abdomen is otherwise unremarkable. IMPRESSION: 1. No significant lymphaden opathy or evidence of metastatic disease within the chest. 2. Status post right mastectomy. 3. Sequelae of old granulomatous disease. 4. 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 SL: [id number] CVC Injection (VR) Patient Name: NUNO ATKINSON 2018 [facility] : 1950; Age: 67 years y/o Female MR: [id number] * Port-A-Cath check (contrast injection/venogra m through Port-A-Cath) HISTORY: Breast carcinoma, l eft subclavian Port-A-Cath in place poor blood return. The patient was sent for evaluation. TECHNIQUE: Initially, aspira tion was attempted. Next, a contrast study was performed with fluoroscopic evaluation and spot filming. The fluoroscopy time was 24 seconds. Radiation dose - reference air kerma: 1.8 mGy. IMPRESSION: The findings are similar to the prior study of 1 04/29/2015. There is a left subclavian s kurtis lumen Port-A-Cath. The tip is in the region of the confluence of the innominate veins just above the upper superior vena cava. There was poor blood return. Upon injection of the cathet er, there is no extravasation. However, there is extensive fibrin sheath around approximately the distal 8 cm of the catheter. There is retrograde flow through the fibrin she ath into the left innominate vein with reflux into the left jugular vein. Some contrast material did enter the superior vena cava. My suggestion would be to pl brian a right IJ Port-A-Cath which extends well into the lower superior vena cava. The patient tolerated the procedure well and suf fered no many complications. SL: [id number] CVC Injection (VR) Patient Name: NUNO ATKINSON 2017 [facility] : 1950; Age: 67 years Female MR: [id number] Study: CVC Injection (VR) 02/26/2018 1:39 PM [employer]PARER PROCEDURE: Fluoroscopic-guided assessment of the left subclavian chest port CLINICAL INFORMATION: Malfunctioning left chest port CONSENT: The procedure, risk s, benefits and alternatives were discussed with the patient and written informed consent was obtained. A 'time out' was performed per protocol prior to the procedure. TECHNIQUE: cosmetics machine operator: Dr. Hairston Preoperative diagnosis: Malfunctioning left ches t port Postoperative diagnosis: Same Fluoroscopy time: 0.9 min Reference air kerma: 10.21 mGy Estimated blood loss: None Initial meter reader chief image demonstr ates a left subclavian chest port with tip projecting at the confluence of the SVC and left brachiocephalic vein. Contrast was administered th rough the left chest port which demonstrated a fibrin sheath. The fibrin sheath was partially occlusive with some flow being directed into the SVC as well as some flow being directed retrograde within t he fibrin sheath into the left brachiocephalic vein. The port was difficult to aspirate. Patient tolerated the procedure well without imm ediate complication. IMPRESSION: Partially occlusive fibrin s nelly surrounding the tip of the left subclavian chest port. Per history, Cath david was administered on multiple occasions during administration of chemotherapy. Consider endovascular fibrin stripping versus re placement of the chest port. SL: [id number] Consultation Notes No Data Provided for This Section Discharge Summaries No Data Provided for This Section History and Physicals No Data Provided for This Section Vital Signs Vital Sign Value Date Comments Source Height 152.4 cm 03/11/2019 [facility] Weight 56.818 03/11/2019 [facility] BMI Calculated 24.46 03/11/2019 [facility] Height 152.4 cm 05/08/2018 [facility] BMI Calculated 26.42 05/08/2018 [facility] Weight 61.364 05/08/2018 [facility] BMI Calculated 24.07 02/26/2018 [facility] Weight 55.909 02/26/2018 [facility] Height 152.4 cm 02/26/2018 [facility] Encounters Location Location Encounter Encounter Reason Attending ADM DC Stat us Source Details Type Number For Provider Date Date [facility] [id number] Steve 02/26 02/27 [facility]2017 [facility] [id number] Steve 05/08 05/09 [facility] /2018 [facility] [id number] Steve 05/08 05/09 [facility] /2018 [facility] [id number] Steve 11/06 11/07 [facility] [id number] Steve 03/11 03/12 [facility] /2018 [facility] [id number] Steve 04/16 04/17 [facility] [place] Procedures No Data Provided for This Section Assessment and Plan No Data Provided for This Section Plan of Care No Data Provided for This Section Social History Social History Date Source Social History TypeResponse 04/17/2019 [facility] Social History TypeResponse 03/12/2019 [facility] No data available for this 02/27/2018 [facility] section Family History No Data Provided for This Section Advance Directives No Data Provided for This Section Functional Status No Data Provided for This Section
--- OUTSIDE RECORDS SUMMARY | 2019-10-29 12:43 | XMS REPORT | Continuity of Care Document ---
:1950 Author Organization [facility] t Address [address] [place] [address] Care Team Providers Name Role Phone Steve Asencio Attending Clinician Problems Condition Condition Condition Status Onset Resolution Last Treating Co mments Source Name Details Category Date Date Treatment Clinician Date C50.011=MA Diagnosis Active 2018-032019-03-11 Memoria LIGNANT 04-18 11:23:00 l NEOPLASM 00:00: [place] OF NIPPLE C50.011=MA 00 AND LIGNANT NEOPLASM OF NIPPLE AND Active 02/16/2019 [facility] PORT CHECK Diagnosis Active 2018-05-08 Memoria 2-07 09:34:00 l PORT 00:00: [place] CHECK 00 Active 05/01/2018 [facility] [place] Z51.11 Diagnosis Active 2018-05-08 [facility] oria 2-07 15:40:00 l Z51.11 00:00: [place] 00 Active 05/01/2018 [facility] PORTACATH Diagnosis Active 2017-032018-02-26 Memoria CHECK 2-04 13:41:00 l 00:00: [place] PORTACATH 00 CHECK Active 02/25/2018 [facility] [place] Malignant Problem 2018-09-16 Pa moria neoplasm 11:45:58 l of nipple [place] and Malignant areola, 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, right female breast 09/16/2018 [place] Estrogen Problem 2018-09-16 [facility] oria receptor 11:45:58 l positive Estrogen Herm saskia status receptor [ER+] positive status [ER+] 09/16/2018 [facility] ENCOUNTER Diagnosis Active 2018-05-08 Memoria FOR 15:40:00 l ANTINEOPLA Andrea n STIC ENCOUNTER CHEMOTHERA FOR P ANTINEOPLA STIC CHEMOTHERA P Active [facility] Other Problem [id number] Ap avelar specified 2-14 11:45:58 11:45:58 l complicati Other 04:51: Klaudia nn on of specified 07 vascular complicati prosthetic on of devices, vascular implants prosthetic and devices, grafts, implants initial and encounter grafts, initial encounter 03/07/2018 09/16/2018 MELLO Boucher Allergies, Adverse Reactions, Alerts Allergy Allergy Status Severity Reaction(s) Onset Inactive Treating Comm ents Source Name Type Date Date Clinician No Known No Known Active Memori a Medicati Medicati l on on [place] Allergie Allergie s s Social History Social Habit Start Date Stop Date Quantity Comments Source Social History 2018-02-27 2018-02-27 [facility] ermann 05:59:00 05:59:00 Medications This patient has no known medications. Vital Signs Vital Name Observation Time Observation Value Comments Source Height 2019-03-11 17:47:[address] [facility] Weight 2019-03-11 17:47:[address] [facility] BMI Calculated 2019-03-11 17:47[facility] [place] [facility] 2018-05-08 22:00:00 [facility] 2018-05-08 [facility] [place] [facility] 2018-05-08 22:00:00 [facility] BMI Calculated 2018-02-26 19:58:00 [facility] al [place] Weight 2018-02-26 19:58:00 [facility] Height 2018-02-26 19:58:00 [facility] Procedures This patient has no known procedures. Encounters Start End Encounter Admission Attending Care Care Encounter Source Date/Time Date/Time Type Type Clinicians Facility Department ID 2019-04-16 2019-04-16 Outpatient BRIDGET Asencio OIP [id number] 11:09:00 23:59:00 Steve Tonny 2019-03-11 2019-03-11 Outpatient MANFRED AsencioSE [id number] 10:15:00 23:59:00 Steve 03 Tishemily 2019-03-11 2019-03-11 Outpatient MANFRED SARKARSE [id number] 10:15:00 10:15:00 [facility] 2018-11-06 2018-11-06 Outpatient BRIDGET Asencio OIP [id number] 08:41:00 23:59:00 Steve 00 [facility] 2018-05-08 2018-05-08 Outpatient MELLO AsencioSE [facility] [id number] 15:39:00 23:59:00 Steve 01 [facility] 2018-05-08 2018-05-[address] [id number] 09:34:00 23:59:00 Steve [facility] 2018-02-26 2018-02-[address] [id number] 13:31:00 23:59:00 Steve [facility] Results Test Description Test Time Test Comments Results Result Comments Source CHEM PANEL 2019-03-11 0.7 [facility] Klaudia nn 17:16:00 CHEM PANEL 2019-03-11 91 [facility] Klaudia nn 17:16:00 CHEM PANEL 2018-02-26 0.66 [facility] Klaudia nn 20:00:00 CHEM PANEL 2018-02-26 93 [facility] Klaudia nn 20:00:00
== END 2019-10-29 10:37 | disposition home or self-care (01) ==
LOC: ER 10:12
DX: Z71.1 Person with feared health complaint in whom no diagnosis is made (principal)
CPT/HCPCS: 99283

== ENCOUNTER 2023-08-17 03:04 | Emergency (ER) | payer MEDICARE, OTHER ==
[2023-08-17] MEDS ORDERED: NA CHLORIDE 0.9% 1,000 ML ONE (03:31)
[2023-08-17] MEDS ORDERED: MORPHINE 4 MG/ML SYR ONE (03:31)
[2023-08-17] MEDS ORDERED: ONDANSETRON 4 MG/2 ML VIAL ONE (03:31)
[2023-08-17 03:44] LABS: Absolute Basophils 0.1 K/uL (0-0.5); Absolute Eosinophils 0.4 K/uL (0-0.5); Absolute Lymphocytes (CBC) 2.9 K/uL (0.7-4.9); Absolute Monocytes 0.7 K/uL (0.1-1.3); Absolute Neutrophil 9.2 K/uL (1.8-8.0); Basophils % 0.5 % (0-1.3); Eosinophils % 2.7 % (0-4.4); Hematocrit 37.3 % (36.0-45.0); Hemoglobin 12.4 g/dL (12.0-15.0); Lymphocytes % 21.8 % (15.3-44.8); MCH 28.7 pg (27.0-35.0); MCHC 33.1 g/dL (32.0-36.0); MCV 86.6 fL (80-100); MPV 8.6 fL (7.6-11.3); Monocytes % 5.3 % (3.3-12.3); Neutrophils % 69.7 % (41.7-73.7); Platelets 289 thou/uL (152-406)
[2023-08-17 04:02] LABS: Specific Gravity 1.014 (1.005-1.030); Sqamous Epithelial <5 /HPF (None Seen); Urine Bacteria None Seen /HPF (<20); Urine Bilirubin NEGATIVE (Negative); Urine Blood Negative (Negative); Urine Clarity Clear (Clear); Urine Color Colorless (Yellow); Urine Culture Reflex Order NOT NEEDED; Urine Glucose 4+ (Over) (Negative); Urine Ketones NEGATIVE (Negative); Urine Microscopic Reflex YN ORDER UMIC; Urine Nitrite NEGATIVE (Negative); Urine Protein NEGATIVE (Negative); Urine RBC <5 /HPF (None Seen); Urine Urobilinogen Normal (Normal); Urine WBC <5 /HPF (<5); Urine pH 7.5 (5.0-7.0)
[2023-08-17 04:14] LABS: Albumin 3.4 g/dL (3.4-5.0); Albumin/Globulin Ratio 0.9 (1.1-1.8); Anion Gap 12.8 mEq/L (5.0-15.0); Bilirubin Total 0.8 mg/dL (0.2-1.0); Globulin 3.9 g/dL (2.3-3.5); Potassium 3.8 mEq/L (3.5-5.1); Protein, Total 7.3 g/dL (6.4-8.2); Troponin High Sensitivity 5.6 pg/mL (<58.9)
--- NOTE | 2023-08-17 06:24 | RAD REPORT ---
EXAM DESCRIPTION: CTAbdomen Pelvis W Contrast - 08/17/2023 4:00 am CLINICAL HISTORY: ABD PAIN COMPARISON: No comparisons TECHNIQUE: CT of the abdomen and pelvis was performed. All CT scans are performed using dose optimization technique as appropriate and may include automated exposure control or mA/KV adjustment according to patient size. FINDINGS: Lower chest: No acute abnormality. Mild coronary artery calcifications. Liver: No acute abnormality or suspicious lesions. Biliary: No biliary ductal dilatation. Stomach: No significant focal abnormality. Duodenum: No significant focal abnormality. Pancreas: No significant abnormality. Nonspecific diffusely prominent pancreatic duct. Spleen: No significant abnormality. Adrenal: No suspicious lesions. Kidney/ureter: No hydronephrosis. No renal calculi. Too small to characterize and/or benign appearing renal lesions are noted. Retroperitoneum: No retroperitoneal adenopathy. Vascular: No aneurysm. Atherosclerosis . Bowel: Diverticulosis without diverticulitis.. Peritoneum: No ascites or free air. Bladder: Grossly unremarkable. Reproductive: Hysterectomy. Bones: No acute fracture. Other: n/a IMPRESSION: No acute intra-abdominal or pelvic finding.
--- NOTE | 2023-08-17 06:52 | ER ---
Nurse's Notes [facility] Name: Anna Colvin Age: 73 yrs Sex: Female : 1950 Arrival Date: 08/17/2023 Time: 03:04 Bed 7 Private MD: Diagnosis: Abdominal pain, unspecified Presentation: 08/16 03:19 Chief complaint: Patient states: epigastric pain with nausea. onset 0100. pain 10/. lg3 Coronavirus screen: Client denies travel out of the [place] in the last 14 days. At this time, the client does not indicate any symptoms associated with coronavirus-19. Ebola Screen: No symptoms or risks identified at this time. Initial Sepsis Screen: Does the patient meet any 2 criteria? No. Patient's initial sepsis screen is negative. Does the patient have a suspected source of infection? No. Patient's initial sepsis screen is negative. Risk Assessment: Do you want to hurt yourself or someone else? Patient reports no desire to harm self or others. Onset of symptoms was August 17, 2023. 03:19 Method Of Arrival: EMS: [facility] lg3 03:19 Acuity: JESSICA 3 lg3 Triage Assessment: 03:20 General: Appears in no apparent distress. uncomfortable, Behavior is calm, cooperative. lg3 Pain: Complains of pain in epigastric area Pain radiates to right upper quadrant and left upper quadrant Pain currently is 10 out of 10 on a pain scale. Also complains of nausea. EENT: No deficits noted. No signs and/or symptoms were reported regarding the EENT system. Neuro: No deficits noted. Fajardo Agitation-Sedation Scale (RASS): 0 - Alert and Calm Level of Consciousness is awake, alert, obeys commands, Oriented to person, place, time, situation, Reports headache. Cardiovascular: No deficits noted. Denies chest pain, shortness of breath, Capillary refill < 3 seconds Clubbing of nail beds is absent JVD is absent Patient's skin is warm and dry. Respiratory: No deficits noted. Airway is patent Respiratory effort is even, unlabored, Respiratory pattern is regular, symmetrical, Breath sounds are clear bilaterally. GI: Abdomen is round non-distended, obese, Bowel sounds present X 4 quads. Abd is soft X 4 quads Abdomen is tender to palpation in epigastric area, right upper quadrant and left upper quadrant Reports upper abdominal pain, epigastric pain, nausea. : No deficits noted. No signs and/or symptoms were reported regarding the genitourinary system. Derm: No deficits noted. No signs and/or symptoms reported regarding the dermatologic system. Skin is intact, is healthy with good turgor, Skin is dry, Skin is normal, Skin temperature is warm. Musculoskeletal: No deficits noted. No signs and/or symptoms reported regarding the musculoskeletal system. Circulation, motion, and sensation intact. Range of motion: intact in all extremities. Historical: - Allergies: 03:20 No Known Allergies; lg3 - Home Meds: 03:20 metformin 1 Oral tab 1 tab 2 times per day [Active]; atorvastatin 40 mg Oral tab 1 tab lg3 once daily [Active]; Levemir 100 unit/mL subcutaneous soln 15 unit daily [Active]; - PMHx: 03:20 Diabetes - IDDM; Hyperlipidemia; HTN (Hyperlipidemia); breast cancer (Hyperlipidemia); lg3 - PSHx: 03:20 right mastectomy (Hyperlipidemia); Total abdominal hysterectomy; lg3 - Immunization history:: Adult Immunizations up to date, Client reports receiving the 2nd dose of the Covid vaccine. - Infectious Disease History:: Denies. - Social history:: Smoking status: Patient denies any tobacco usage or history of. Patient/guardian denies using alcohol, street drugs. Screenin:23 [facility] ED Fall Risk Assessment (Adult) History of falling in the last 3 months, lg3 including since admission No falls in past 3 months (0 pts) Confusion or Disorientation No (0 pts) Intoxicated or Sedated No (0 pts) Impaired Gait No (0 pts) Mobility Assist Device Used No (0 pt) Altered Elimination No (0 pt) Score/Fall Risk Level 0 - 2 = Low Risk Oriented to surroundings, Maintained a safe environment, Educated pt \T\ family on fall prevention, incl call for assistance when getting out of bed, Assessed \T\ reinforced patient's understanding of fall precautions. Abuse screen: Denies threats or abuse. Denies injuries from another. Nutritional screening: No deficits noted. Tuberculosis screening: No symptoms or risk factors identified. Assessment: 03:23 General: see triage assessment. lg3 06:12 Reassessment: Patient appears in no apparent distress at this time. No changes from lg3 previously documented assessment. Patient and/or family updated on plan of care and expected duration. Pain level reassessed. Patient is alert, oriented x 3, equal unlabored respirations, skin warm/dry/pink. Vital Signs: 03:19 BP 177 / 84; Pulse 88; Resp 17 S; Temp 97.4(O); Pulse Ox 98% on R/A; Weight 56.25 kg lg3 (R); Height 5 ft. 2 in. (R); Pain 10/10; 06:12 BP 151 / 78; Pulse 86; Resp 17 S; Pulse Ox 97% on R/A; lg3 03:19 Body Mass Index 22.68 (56.25 kg, 157.48 cm) lg3 03:19 Pain Scale: Adult lg3 ED Course: 03:14 Patient arrived in ED. cm10 03:14 Sumaya Bianchi MD is Attending Physician. sp3 03:19 Mariann Graf RN is Primary Nurse. lg3 03:20 Triage completed. lg3 03:20 Arm band placed on right wrist. lg3 03:23 Patient has correct armband on for positive identification. Placed in gown. Bed in low lg3 position. Call light in reach. Side rails up X 1. Client placed on continuous cardiac and pulse oximetry monitoring. NIBP monitoring applied. Door closed. Noise minimized. Warm blanket given. Family accompanied patient. 03:23 Maintain EMS IV. Dressing intact. Good blood return noted. Site clean \T\ dry. Gauge \T\ lg 3 site: 20LAC. 04:01 CT Abd/Pelvis - IV Contrast Only In Process Unspecified. EDMS 07:06 No provider procedures requiring assistance completed. IV discontinued, intact, lg3 bleeding controlled, No redness/swelling at site. Pressure dressing applied. Administered Medications: 03:37 Drug: NS 0.9% IV 1000 ml IV at 1 bolus Per protocol; 1000 mL bolus Route: IV; Rate: 1 lg3 bolus; Site: left antecubital; 06:16 Follow up: Response: No adverse reaction; IV Status: Completed infusion; IV Intake: lg3 1000ml 03:37 Drug: Ondansetron IVP 4 mg IVP once; over 2 minutes Route: IVP; Site: left antecubital; lg3 06:16 Follow up: Response: No adverse reaction lg3 03:37 Drug: morphine IVP or IV 4 mg IVP once over 4 mins Route: IVP; Infused Over: 4 mins; lg3 Site: left antecubital; 06:16 Follow up: Response: No adverse reaction lg3 Medication: 07:06 VIS not applicable for this client. lg3 Intake: 06:16 IV: 1000ml; Total: 1000ml. lg3 Outcome: 06:52 Discharge ordered by . sp3 07:06 Discharged to home ambulatory, with family, lg3 07:06 Condition: stable 07:06 Discharge instructions given to patient, Instructed on discharge instructions, follow up and referral plans. Demonstrated understanding of instructions, follow-up care, 07:06 Patient left the ED. lg3 Signatures: Dispatcher [employer] EDMariann Vlale RN RN lg3 Sumaya Bianchi MD MD sp3 Stephanie Arias RN RN cm10
--- NOTE | 2023-08-17 06:52 | EDPHYS ---
Physician Documentation [facility] Name: Anna Colvin Age: 73 yrs Sex: Female : 1950 Arrival Date: 08/17/2023 Time: 03:04 Bed 7 Private MD: ED Physician Sumaya Bianchi HPI: 08/16 03:34 This 73 yrs old Female presents to ER via EMS with complaints of abdominal sp3 pain. 03:34 73-year-old female with a history of breast cancer status postmastectomy, hypertension, sp3 diabetes now presents with epigastric pain for the last 24 hours with a worsening around 1 AM at which point it woke her from sleep. She denies any prior intra-abdominal surgeries. Pain is waxing and waning. She denies headache, fever, URI symptoms, neck pain, chest pain, shortness of breath, back pain, lower abdominal pain, symptoms, PERSONNEL SCHEDULER symptoms, rash, known sick contacts, travel history, or any other signs or symptoms on ROS at this time.. Historical: - Allergies: 03:20 No Known Allergies; lg3 - Home Meds: 03:20 metformin 1 Oral tab 1 tab 2 times per day [Active]; atorvastatin 40 mg Oral tab 1 tab lg3 once daily [Active]; Levemir 100 unit/mL subcutaneous soln 15 unit daily [Active]; - PMHx: 03:20 Diabetes - IDDM; Hyperlipidemia; HTN (Hyperlipidemia); breast cancer (Hyperlipidemia); lg3 - PSHx: 03:20 right mastectomy (Hyperlipidemia); Total abdominal hysterectomy; lg3 - Immunization history:: Adult Immunizations up to date, Client reports receiving the 2nd dose of the Covid vaccine. - Infectious Disease History:: Denies. - Social history:: Smoking status: Patient denies any tobacco usage or history of. Patient/guardian denies using alcohol, street drugs. ROS: 03:35 Constitutional: Negative for fever, chills, and weight loss, Eyes: Negative for injury, sp3 pain, redness, and discharge, ENT: Negative for injury, pain, and discharge, Neck: Negative for injury, pain, and swelling, Cardiovascular: Negative for chest pain, palpitations, and edema, Respiratory: Negative for shortness of breath, cough, wheezing, and pleuritic chest pain, Back: Negative for injury and pain, MS/Extremity: Negative for injury and deformity, Skin: Negative for injury, rash, and discoloration, Neuro: Negative for headache, weakness, numbness, tingling, and seizure, Psych: Negative for depression, anxiety, suicide ideation, homicidal ideation, and hallucinations, Allergy/Immunology: Negative for hives, rash, and allergies, Endocrine: Negative for neck swelling, polydipsia, polyuria, polyphagia, and marked weight changes, Hematologic/Lymphatic: Negative for swollen nodes, abnormal bleeding, and unusual bruising, 03:35 All other systems are negative, Exam: 03:35 Constitutional: This is a well developed, well nourished patient who is awake, alert, sp3 and in no acute distress. Head/Face: Normocephalic, atraumatic. Eyes: Pupils equal round and reactive to light, extra-ocular motions intact. Lids and lashes normal. Conjunctiva and sclera are non-icteric and not injected. Cornea within normal limits. Periorbital areas with no swelling, redness, or edema. ENT: Nares patent. No nasal discharge, no septal abnormalities noted. External auditory canals are clear. Oropharynx with no redness, swelling, or masses, exudates, or evidence of obstruction, uvula midline. Mucous membranes moist. Neck: Trachea midline, no thyromegaly or masses palpated, and no cervical lymphadenopathy. Supple, full range of motion without nuchal rigidity, or vertebral point tenderness. No Meningismus. Chest/axilla: Normal chest wall appearance and motion. Nontender with no deformity. No lesions are appreciated. Cardiovascular: Regular rate and rhythm with a normal S1 and S2. No gallops, murmurs, or rubs. Normal PMI, no JVD. No pulse deficits. Respiratory: Lungs have equal breath sounds bilaterally, clear to auscultation and percussion. No rales, rhonchi or wheezes noted. No increased work of breathing, no retractions or nasal flaring. Back: No spinal tenderness. No costovertebral tenderness. Full range of motion. Skin: Warm, dry with normal turgor. Normal color with no rashes, no lesions, and no evidence of cellulitis. MS/ Extremity: Pulses equal, no cyanosis. Neurovascular intact. Full, normal range of motion. Neuro: Awake and alert, GCS 15, oriented to person, place, time, and situation. Cranial nerves II-XII grossly intact. Motor strength 5/5 in all extremities. Sensory grossly intact. Cerebellar exam normal. Normal gait. Psych: Awake, alert, with orientation to person, place and time. Behavior, mood, and affect are within normal limits. 03:35 Abdomen/GI: Patient has epigastric pain to palpation without peritoneal signs, rebound or guarding. Nonsurgical abdomen., 04:51 ECG was reviewed by the Attending Physician. EKG demonstrates normal sinus rhythm at 81 sp3 bpm with normal intervals, normal QRS, leftward axis and nonspecific diffuse ST's ST changes without evidence of acute ischemia. Vital Signs: 03:19 BP 177 / 84; Pulse 88; Resp 17 S; Temp 97.4(O); Pulse Ox 98% on R/A; Weight 56.25 kg lg3 (R); Height 5 ft. 2 in. (R); Pain 10/10; 06:12 BP 151 / 78; Pulse 86; Resp 17 S; Pulse Ox 97% on R/A; lg3 03:19 Body Mass Index 22.68 (56.25 kg, 157.48 cm) lg3 03:19 Pain Scale: Adult lg3 MDM: 03:14 Patient medically screened. sp3 03:36 Data reviewed: vital signs, nurses notes, lab test result(s), EKG, radiologic studies. sp3 ED course: 73-year-old female with epigastric abdominal pain. Differential diagnosis includes pancreatitis, biliary pathology, ACS, UTI/pyelonephritis spectrum, kidney stone, recurrence of cancer, among others. Workup will include laboratory values, UA, swabs and CT scan of the abdomen pelvis with IV contrast. Disposition pending workup and patient course. IV saline, morphine and ondansetron for pain control.. 06:51 ED course: CT scan of the abdomen pelvis demonstrates no significant abnormality. sp3 Laboratory values reviewed and other than hyperglycemia demonstrate no abnormalities as well. Patient is much improved and all pain is gone. Consider foodborne illness as a cause of her symptoms. At this time we will safely discharge her home and family states that they will take her to PCP at next available appointment.. 08/16 03:25 Order name: CBC with Diff; Complete Time: 03:52 sp3 08/16 03:25 Order name: CMP; Complete Time: 04:17 sp3 05/25 03:25 Order name: Lipase; Complete Time: 04:17 sp3 08/16 03:25 Order name: Urinalysis w/ reflexes; Complete Time: 04:17 sp3 08/16 03:25 Order name: Troponin High Sensitivity; Complete Time: 04:17 sp3 08/16 04:03 Order name: CREATININE WHOLE BLOOD; Complete Time: 04:17 EDMS 08/16 03:25 Order name: CT Abd/Pelvis - IV Contrast Only; Complete Time: 06:25 sp3 08/16 03:25 Order name: EKG; Complete Time: 03:26 sp3 08/16 03:25 Order name: IV Saline Lock; Complete Time: 03:37 sp3 08/16 03:25 Order name: Labs collected and sent; Complete Time: 03:37 sp3 08/16 03:25 Order name: EKG - Nurse/Tech; Complete Time: 03:37 sp3 Administered Medications: 03:37 Drug: NS 0.9% IV 1000 ml IV at 1 bolus Per protocol; 1000 mL bolus Route: IV; Rate: 1 lg3 bolus; Site: left antecubital; 06:16 Follow up: Response: No adverse reaction; IV Status: Completed infusion; IV Intake: lg3 1000ml 03:37 Drug: Ondansetron IVP 4 mg IVP once; over 2 minutes Route: IVP; Site: left antecubital; lg3 06:16 Follow up: Response: No adverse reaction lg3 03:37 Drug: morphine IVP or IV 4 mg IVP once over 4 mins Route: IVP; Infused Over: 4 mins; lg3 Site: left antecubital; 06:16 Follow up: Response: No adverse reaction lg3 Disposition Summary: 08/17/23 06:52 Discharge Ordered Notes: Location: Home sp3 Condition: Stable sp3 Diagnosis - Abdominal pain, unspecified sp3 Followup: sp3 - With: Private Physician - When: Upon discharge from the Emergency Department - Reason: Continuance of care Discharge Instructions: - Discharge Summary Sheet sp3 Forms: - Medication Reconciliation Form sp3 - Antibiotic Education sp3 - Prescription Opioid Use sp3 - Patient Portal Instructions sp3 - Leadership Thank You Letter sp3 Signatures: Dispatcher [employer] Mariann Mojica RN RN lg3 Bianchi, Setul, MD MD sp3
[2023-08-17 07:12] VITALS: BP 151/78; TEMP 97.4; O2SAT 97
--- NOTE | 2023-08-20 14:25 | EKG ---
Test Date: 2023-08-17 Test Time: 03:39:02 [employer] Scientist: CURTIS MEASUREMENT RESULTS: Intervals: Rate: 81 CA: 156 QRSD: 72 QT: 394 QTc: 457 [place]: P: 43 CA: 156 QRS: -67 T: 67 INTERPRETIVE STATEMENTS: Normal sinus rhythm Left axis deviation Pulmonary disease pattern Septal infarct, age undetermined Abnormal ECG Compared to ECG 03/05/2018 07:48:37 Myocardial infarct finding now present Electronically Signed On 08-20-23 14:14:57 CDT by Juan M Young
== END 2023-08-17 07:06 | disposition home or self-care (01) ==
LOC: ER 03:04
DX: R10.13 Epigastric pain (principal)
CPT/HCPCS: 96361; 93005; 85025; 81001; 36415; 82565; 84484; 83690; 80053; 74177; 96375; 96374; 99284; Q9967; J2405; J7030